=== PATIENT | male | born 1985 | race Two or more races ===

== ENCOUNTER → 2016-09-04 | Emergency (ER) | payer SELFPAY ==
[~2016-09-04] VITALS: Ht 172.7 cm; Wt 90.7 kg
[~2016-09-04] MED LIST: HALOPERIDOL LACTATE INJ 5 MG/ML VIAL IM ONE; HALOPERIDOL LACTATE INJ 5 MG/ML VIAL ONE; LORAZEPAM INJ 2 MG/ML VIAL IM ONE; LORAZEPAM INJ 2 MG/ML VIAL ONE; diphenhydrAMINE HCL 50 MG/ML VIAL IM ONE; diphenhydrAMINE HCL 50 MG/ML VIAL ONE
[2016-09-04 19:12] VITALS: BP 154/100
[2016-09-04 19:29] LABS: BASOPHILS % (AUTO) 0.3 % (0.0-2.0); DIFF TOTAL % 100 %; EOSINOPHILS % (AUTO) 0.2 % (0.0-6.0); HEMATOCRIT 49 % (39-51); HEMOGLOBIN 13.3 g/dL (13.5-17.5); MEAN CORPUSCULAR HEMOGLOBIN 24 PG (26.0-33.0); MEAN CORPUSCULAR HGB CONC 27 g/dl (31.0-36.0); MEAN CORPUSCULAR VOLUME 87 fL (80-96); MONOCYTES # (AUTO) 0.8 /CMM (0.1-1.30); MONOCYTES % (AUTO) 7.4 % (2.0-12.0); NEUTROPHILS # (AUTO) 6.3 /CMM (1.8-8.9); NEUTROPHILS % (AUTO) 56.1 % (43.0-81.0); PLATELET COUNT (AUTO) 495 /CMM (150-450); RED BLOOD CELL COUNT(AUTO) 5.64 MIL/uL (4.5-6.0); WHITE BLOOD COUNT (AUTO) 11.1 K/uL (4.3-11.0)
[2016-09-04 19:40] LABS: ANION GAP 11 (5-14); CALCIUM, SERUM 8.3 mg/dL (8.5-10.1); CARBON DIOXIDE 32 mmol/L (21-32); CHLORIDE 105 mmol/L (98-107); CREATININE 0.9 mg/dL (0.6-1.3); GFR 100 mL/min (>60); GLUCOSE 94 mg/dL (74-106); POTASSIUM 3.6 mmol/L (3.5-5.1); SODIUM SERUM 144 mmol/L (136-145); UREA NITROGEN, BLOOD 10 mg/dL (7-18)
[2016-09-04 19:47] LABS: ACETAMINOPHEN < 1 ug/ml (10-30); SALICYLATE < 1.0 mg/dL (2.8-20.0)
== END | disposition home or self-care (01) ==
LOC: ER 16:25
DX: F10.129 Alcohol abuse with intoxication, unspecified (principal); R51 Headache
CPT/HCPCS: 36415; 70450; 71010; 80048; 85025; 96372 ×3; 99285; A4606 ×3; G0480; G0481; G0482; J1200; J1630; J2060; Z7610; G6038-TC; G6039-TC; G6040-TC